=== PATIENT | male | born 1995 | race Caucasian/White ===

== ENCOUNTER 2016-11-15 13:08 | Emergency (ER) | payer OTHER ==
[~2016-11-15] VITALS: Ht 167.6 cm; Wt 61.2 kg
[~2016-11-15 13:08] MED LIST: AMOXIL250 MG/5 M PO; AUGMENTIN 875875 MG PO; HYDROCODONE BIT1 T11 PO; MELATONIN5 M1 SL; MOTRIN CHI100 MG/5 M PO
[2016-11-15 13:18] VITALS: BP 141/82
[2016-11-15] MEDS ORDERED: ACULAR 3 ML3 M1 OPH (13:32)
[2016-11-15] MEDS ORDERED: Tobrex Ophth S2.5 ML OPH (13:32)
== END 2016-11-15 13:41 | disposition home or self-care (01) ==
LOC: ED 13:08
DX: H10.31 Unspecified acute conjunctivitis, right eye (principal); Z88.4 Allergy status to anesthetic agent

== ENCOUNTER 2017-03-21 01:17 | Emergency (ER) | payer OTHER ==
[~2017-03-21] VITALS: Ht 165.1 cm; Wt 61.7 kg
[~2017-03-21 01:17] MED LIST changes: +ACULAR 3 ML3 M1 OPH; +Tobrex Ophth S2.5 ML OPH
[2017-03-21 01:27] VITALS: BP 155/83
[2017-03-21] MEDS ORDERED: MOTRIN 600 MG E4 TAB PO (03:19)
[2017-03-21] MEDS ORDERED: ZITHROMAX250 MG PO (03:19)
== END 2017-03-21 03:34 | disposition home or self-care (01) ==
LOC: ED 01:17
DX: J40 Bronchitis, not specified as acute or chronic (principal); J01.90 Acute sinusitis, unspecified; R11.10 Vomiting, unspecified; R19.7 Diarrhea, unspecified; Z88.4 Allergy status to anesthetic agent

== ENCOUNTER 2017-06-12 07:55 | Emergency (ER) | payer OTHER ==
[~2017-06-12] VITALS: Ht 167.6 cm; Wt 68.9 kg
[~2017-06-12 07:55] MED LIST changes: +MOTRIN 600 MG E4 TAB PO; +ZITHROMAX250 MG PO
[2017-06-12 08:18] VITALS: BP 124/80
== END 2017-06-12 10:54 | disposition home or self-care (01) ==
LOC: ED 07:55
DX: S90.31XA Contusion of right foot, initial encounter (principal); Z98.890 Other specified postprocedural states; Z79.899 Other long term (current) drug therapy; Z88.4 Allergy status to anesthetic agent; X50.1XXA Overexertion from prolonged static or awkward postures, initial encounter; Y93.89 Activity, other specified; Y92.89 Other specified places as the place of occurrence of the external cause; Y99.9 Unspecified external cause status